=== PATIENT | female | born 1995 | race Caucasian/White ===

== ENCOUNTER 2023-10-09 18:31 | Outpatient (RCR) | payer OTHER, SELFPAY | END 2023-10-09 23:59 | disposition home or self-care (01) | LOC: ROT 18:31 | PROVIDERS: ATTENDING PHYSICIAN Orthopaedic Surgery Hand Surgery; FAMILY PHYSICIAN Family Medicine | DX: M79.641 Pain in right hand (principal); Z73.6 Limitation of activities due to disability | CPT/HCPCS: 97018; 97165; 97535 ==

== ENCOUNTER 2025-02-19 06:23 | Day surgery (SDC) | payer OTHER, SELFPAY | END 2025-02-19 12:40 | disposition home or self-care (01) | LOC: GI 06:23 | PROVIDERS: ATTENDING PHYSICIAN Internal Medicine; FAMILY PHYSICIAN Family Medicine | DX: R12 Heartburn (principal); K44.9 Diaphragmatic hernia without obstruction or gangrene; R11.10 Vomiting, unspecified; K29.50 Unspecified chronic gastritis without bleeding; K31.A0 Gastric intestinal metaplasia, unspecified | CPT/HCPCS: 43239; 88305; 88342 ==

== ENCOUNTER 2025-03-17 16:16 | Emergency (ER) | payer OTHER, SELFPAY ==
[2025-03-17 16:30] VITALS: BMI 24.1
[2025-03-17 16:31] VITALS: BP 114/72
--- NOTE | 2025-03-17 16:53 | ED.GENMED ---
History of Present Illness
General
Chief Complaint: Catheter/Tube Problem
Time Seen by Provider: 03/17/25 16:45
History of Present Illness
History of Present Illness:
Patient is a 29-year-old woman with ongoing nausea vomiting that resulted in a manometer to be placed this morning at the GI suite presenting to the emergency department the problem with her manometer. She states that she was vomiting in the
manometer came up out of her mouth. She denies any chest pain difficulty breathing. She wanted to remove the whole manometer but 911 was called who advised her to come to the emergency department for removal. Patient does not want the manometer
to be replaced given that it was causing worsening gagging and vomiting.
Past History
Past History
ED Past Medical History: Other (Anxiety)
ED Past Surgical History: Orthopedic
Social History
Tobacco: Non-smoker
Drug: None
Personal: Single
Living: with family
Employment: Employed
Family History
Family History: Other
Phy Exam
Physical Exam
Physical Exam:
GENERAL: in no acute distress
HEENT: normocephalic, extraocular movements intact, moist oral mucosa, manometer in place through the nose though the distal end comes out from the posterior oropharynx
NECK: normal inspection
RESPIRATORY: no respiratory distress, clear to auscultation bilaterally
CARDIOVASCULAR: regular rate and rhythm
ABDOMEN/: soft, non-distended, non-tender to palpation, no rebound or guarding
EXTREMITIES: non-tender, no edema/swelling
NEUROLOGIC: awake and alert, moves all extremities
SKIN: warm
Course
Vital Signs
Initial and Last Documented VS:
Initial Vital Signs
Temp
98.6 F
03/17/25 16:20
Last Documented Vital Signs
Temp Pulse BP Pulse Ox
98.3 F 85 114/72 99
03/17/25 16:38 03/17/25 16:38 03/17/25 16:31 03/17/25 16:55
MDM/Problems Addressed
Differential Diagnosis Includes:
Patient is a 29-year-old woman presenting to the emergency department with her manometer coming out of her mouth after an episode of vomiting. On arrival vitals unremarkable and exam does show manometer in place through the nose though the distal
end of it comes out through her mouth. Patient adamantly does not want it replaced given the amount of gagging/vomiting. Discussed with GI. Stated that it is okay to remove. Patient will drop off the equipment tomorrow.
Manometer was safely removed by nursing. Patient asymptomatic afterwards. Lungs are clear. Abdomen remains soft. Will discharge at this time.
*Pulse Oximetry
SaO2: 99
Patient hypoxic: no (99)
*Critical Care Note
Total Time (30-74mins, 75-104mins- exclusive of procedures): Not Applicable
ED Attending Note
-
Portions of this chart may have been created with voice recognition software.� Occasional wrong word or��sound alike� substitutions may have occurred due to the inherent limitations of voice recognition software.
Discharge Plan
Departure
Patient Disposition: Home (Routine Discharge)
Date of Disposition: 03/17/25
Time of Disposition: 17:05
Patient with high blood pressure during this ER visit?: No
Discharge Problem:
manometer removal
Prescriptions:
No Action
hydromorphone 2 MG tablet
2 mg PO Q6HPRN PRN (Reason: PAIN)
sertraline 100 MG tablet
150 mg PO HS
hydroxyzine pamoate [Vistaril] 50 MG capsule
50 mg PO HSPRN PRN (Reason: ANXIETY)
lurasidone [Latuda] 60 MG tablet
60 mg PO HS
Activity Restrictions/Additional Instructions:
Please make sure you drop off the equipment at the GI office tomorrow
Interventions
Interventions:
*Risk Screen - Suicide Last Done: 03/17/25 16:27
*General Assessment Last Done: 03/17/25 16:26
*Neglect/Abuse Screening Last Done: 03/17/25 16:27
*ED- Fall Risk Assessment Last Done: 03/17/25 16:26
*ED COVID-19 Vaccine History Last Done: 03/17/25 16:26
ZP-Ujwhwj-Bcwgkgohxf Assessment Last Done: 03/17/25 16:28
ED-Female Genitourinary Assessment Last Done: 03/17/25 16:28
Discharge Date and Time
Print Language: SPANISH
[2025-03-17 17:00] VITALS: BP 125/78
== END 2025-03-17 17:29 | disposition home or self-care (01) ==
LOC: EMR 16:16
PROVIDERS: EMERGENCY PHYSICIAN Student in an Organized Health Care Education/Training Program; FAMILY PHYSICIAN Family Medicine
DX: Z46.89 Encounter for fitting and adjustment of other specified devices (principal); F41.9 Anxiety disorder, unspecified
CPT/HCPCS: 99282